=== PATIENT | male | born 1960 | race Caucasian/White ===

== ENCOUNTER → 2017-01-21 | Outpatient (CLI) | payer OTHER ==
[~2017-01-21] MED LIST: ASPIRIN EC81 M1 PO; ASPIRIN81 MG PO; DOCUSATE SODIU100 MG PO; FLAGYL PO; LEVAQUIN PO; LEVITRA PO; LIBRAX CAPSULE1 CA1 PO; METOPROLOL ER-1 EACH PO; METOPROLOL SUCC25 MG PO; MULTI VITAMIN1 EACH PO; MULTI-DAY VITAM1 TAB PO; MULTIVITAMINS1 EAC3 PO; PROBIOTIC1 EAC1 PO; VANCOCIN HCL250 MG PO; ZETIA PO; ZYRTEC PO; ZYRTEC10 M1 PO; [UNRECOGNIZED DRUG - OTHER]
--- NOTE | ~2017-01-21 | CT4 ---
[facility] A Service of [facility] & [facility] RADIOLOGY TEXT RESULTS PATIENT: OG ROLDAN LOCATION: [facility] : 58 UNIT #: [id number] AGE: [address]: Ozzy Jasso MD SEX: M ORDER DR: [id number] [facility]. [place], [place] [address] [id number] O MR#: [id number] Acc #: [id number] NAME: OG ROLDAN : 1960 SEX: M STUDY DATE/TIME: 01/21/2017 16:33 [facility] RO[facility]: STUDY DESCRIPTION: CT Abd and Pelv Wo Cont Attending Physician: Ozzy Jasso M.D. Referring Physician: Ozzy Jasso M.D. Ordering Physician: Ozzy Jasso M.D. Primary Care Physician: Ozzy Jasso M.D. MEDICAL IMAGING REPORT This report is preliminary unless electronic signature is present EXAM CT of the abdomen and pelvis without contrast media HISTORY Left lower quadrant pain for 2 days. TECHNIQUE Transaxial imaging of the abdomen and pelvis was performed without contrast media. This CT examination was performed with one or more of the following radiation dose reduction techniques: automatic exposure control, adjustment of mA and/or kV according to patient size, and iterative reconstruction. FINDINGS Scans through the lung bases show some linear scarring and a calcified granuloma at the right base. Liver, spleen, gallbladder, pancreas, and adrenal glands are normal. Both the right and left kidney have a normal appearance. No dilated or thickened loops of bowel are identified. Appendix is normal. There is extensive diverticulosis present. There are pericolonic inflammatory changes in the sigmoid colon associated with a slightly dilated diverticulum consistent with acute diverticulitis. There is no evidence of an associated diverticular abscess. Gas pattern is normal. There are advanced degenerative changes throughout the lumbar spine. CONCLUSION 1. Extensive sigmoid diverticulosis with acute diverticulitis in the sigmoid region. There is pericolonic edema. There is no evidence of an adjacent abscess. 2. Multilevel degenerative disc disease throughout the lumbar spine. [facility] A Service of [facility] & [facility] RADIOLOGY TEXT RESULTS PATIENT: OG ROLDAN LOCATION: [facility] : 58 UNIT #: [id number] AGE: [address]: Ozzy Jasso MD SEX: M ORDER DR: Dictated by... Pranav Espinal M.D. THIS IS AN ELECTRONICALLY VERIFIED REPORT Pranav Espinal M.D. at 01/25/2017 5:10 PM DOMO/joo TD: 01/22/2017 07:42 JOB #: [id number] MEDICAL IMAGING REPORT COPY
== END | disposition home or self-care (01) ==
LOC: CCAT 16:05
DX: R10.32 Left lower quadrant pain (principal); K57.32 Diverticulitis of large intestine without perforation or abscess without bleeding; M51.36 Other intervertebral disc degeneration, lumbar region
CPT/HCPCS: 74176

== ENCOUNTER → 2017-03-08 | Day surgery (SDC) | payer OTHER ==
--- NOTE | ~2017-03-08 | OR ---
Unit #: [id number] #: [id number] Patient: OG ROLDAN [id number] [address] [address] [id number] O MR#: [id number] NAME: OG ROLDAN. ROOM: Date of Procedure: 03/08/2017 Admission Date: 03/08/2017 Surgeon: Jr Boykin M.D. : 1960 Attending Physician: Jr Boykin M.D. Referring Physician: Jr Boykin M.D. Primary Care Physician: Ozzy Jasso M.D. OPERATIVE REPORT PREOPERATIVE DIAGNOSIS Abdominal pain. POSTOPERATIVE DIAGNOSIS Abdominal pain. PROCEDURES PERFORMED 1. Colonoscopy to terminal ileum. 2. Biopsy of ulcerated area of hepatic flexure. 3. Polypectomy with electrocautery snare at 10 cm. ANESTHESIA Monitored anesthesia care. FINDINGS The patient was found to have sigmoid diverticular disease as well as an 8 mm polyp in the rectum at 10 cm, completely excised with electrocautery snare with good hemostasis. There was an ulcerated area possibly neoplasm near the hepatic flexure. Mild internal hemorrhoids. SPECIMENS Sent to Pathology. COMPLICATIONS None apparent. CONDITION The patient tolerated the procedure well. INDICATIONS FOR PROCEDURE The patient is a 57-year-old white male, who has a lower abdominal pain and discomfort and history of diverticulitis in the past. He presents at this time for evaluation by colonoscopy. DESCRIPTION OF PROCEDURE After obtaining informed consent, the patient was brought to the endoscopy suite and after adequate monitored anesthesia care, had the colonoscope placed through the anus and slowly advanced to the level of the cecum without difficulty with the lumen always in view. We were able to pass through the cecum into the terminal ileum. The terminal ileum was normal as was the ileocecal valve and cecum. The ascending colon was normal. In the area of the hepatic flexure, there was an ulcerated area. Multiple Unit #: [id number] #: [id number] Patient: OG ROLDAN biopsies were obtained with good hemostasis. It was a 2 to 3 cm area. The remaining portion of the transverse colon and splenic flexure were normal. In the descending colon and sigmoid colon, there were scattered diverticular disease. There was no acute inflammation. The rectosigmoid and rectum were all within normal limits. At 10 cm from the anal verge, there was a small 8 mm polyp. It was excised completely with electrocautery snare, retrieved with a mucus trap, and sent to Pathology. There was good hemostasis. On retroflexing in the rectum to the anorectal junction, there were some mild internal hemorrhoids. On pulling back through the anal canal, there was no significant abnormality seen. On digital examination, there was good sphincter tone. No masses palpable. The patient went from the endoscopy suite to recovery area in stable condition. RECOMMENDATIONS High-fiber diet, lots of liquids, tucks or wipes p.r.n. Diverticular sheet given. Call Wednesday for pathology. Dictated by... Nadya Tompkins/veronica TD: 03/08/2017 23:49 JOB #: [id number] [facility] OPERATIVE REPORT Page 1 of 1 X Jr Boykin MD X PROCEDURE OPERATIVE NOTE
== END | disposition home or self-care (01) ==
LOC: COPS 10:55
DX: D12.8 Benign neoplasm of rectum (principal); K63.0 Abscess of intestine; K63.3 Ulcer of intestine; K57.30 Diverticulosis of large intestine without perforation or abscess without bleeding; K64.8 Other hemorrhoids; F17.210 Nicotine dependence, cigarettes, uncomplicated; Z79.82 Long term (current) use of aspirin; Z79.899 Other long term (current) drug therapy; Z98.890 Other specified postprocedural states
CPT/HCPCS: 88305; J2250

== ENCOUNTER 2017-03-29 10:38 | Inpatient (IN) | payer OTHER ==
--- NOTE | ~2017-03-29 | HP ---
Unit #: [id number] #: [id number] Patient: OG ROLDAN [id number] [address] [place], [place] [address] [id number] E MR#: [id number] NAME: OG ROLDAN ROOM: Age: 57 Sex: M Admission Date: 03/29/2017 : 1960 Attending Physician: Khanh Jaime D.O. Primary Care Physician: Ozzy Jasso M.D. HISTORY AND PHYSICAL HISTORY OF PRESENT ILLNESS A 57-year-old white male, history of hypertension, hyperlipidemia intolerant of treatment, tobacco use, irritable bowel syndrome, left bundle branch block, ED, had the onset of worsening diarrhea in December of this year. Stool studies were sent. He had no white count or fever at that time. He came back to the office soon thereafter with ongoing symptoms, was given a round of Flagyl for nonspecific colitis. CT scan was consistent with sigmoid diverticulitis. He was given a prescription for Cipro and Flagyl which did not really help. He was referred to [facility] and saw Dr. Boykin who did a colonoscopy on 03/08/17 with a simple polypectomy. There was an ulcer at the hepatic flexure which was biopsies and consistent with a crypt abscess. He is now back in the emergency room with recurrent sigmoid diverticulitis without perforation or abscess formation. He does have an elevated white count and is being admitted for bowel rest and IV antibiotics. ALLERGIES On past medical history the patient has no known drug allergies. MEDICATIONS PRIOR TO ADMISSION 1. Multivitamin one daily. 2. Enteric-coated aspirin 81 mg daily. 3. Probiotic one p.o. daily. 4. Toprol-XL 25 mg daily. 5. Some kind of eczema cream p.r.n. 6. Levitra 20 mg p.o. daily p.r.n. 7. Librax 2.5 mg one to four daily p.r.n. for irritable bowel syndrome. PAST SURGICAL HISTORY His only surgical history is that of plantar warts and a basal cell CA of the nose. PAST MEDICAL HISTORY 1. Hyperlipidemia, intolerant of treatment. 2. Hypertension. 3. Sinus tachycardia. 4. Irritable bowel syndrome. 5. Left bundle branch block. 6. ED. 7. Irritable bowel syndrome. SOCIAL HISTORY , employed city worker, smokes two packs of cigarettes daily, Unit #: [id number] #: [id number] Patient: OG ROLDAN alcohol not on a daily basis but frequently, no street drug use. FAMILY HISTORY Noncontributory. PHYSICAL EXAMINATION GENERAL APPEARANCE: He is awake, alert and oriented x3, in no acute distress. VITAL SIGNS: ER vitals temperature 98.0, pulse 94, respirations 16, blood pressure 109/68, room air O2 sat 95%. HEENT: Unremarkable. Neck was supple, without JVD, bruits, adenopathy or thyromegaly. CHEST: Clear to auscultation. HEART: Has regular rate and rhythm, without any murmurs, gallops or rubs. ABDOMEN: Abdomen was large, soft, nondistended and tender in the left lower quadrant with voluntary guarding and rebound tenderness. No hepatosplenomegaly. No involuntary guarding. EXTREMITIES: No cyanosis, clubbing or edema. GENITOURINARY: Deferred. ANO-RECTAL: Deferred. NEUROLOGIC: Exam is grossly intact. DIAGNOSTIC STUDIES LABORATORY VALUES: CBC shows a white count of 15.2 with a left shift but is otherwise normal. CMP is within normal limits except for a random blood sugar of 118. Lipase was 18, well within normal range. Urinalysis shows trace leukocytes, 1+ protein, [address] IMAGING: CT scan no official report but per the ER physician shows sigmoid diverticulitis without perforation or abscess formation. IMPRESSION 1. Chronic sigmoid diverticulitis. 2. Hypertension. 3. Sinus tachycardia. 4. Left bundle branch block. 5. Erectile dysfunction. 6. Hyperlipidemia. 7. Irritable bowel syndrome. 8. Tobacco use. PLAN Bowel rest, IV antibiotics, IV fluids, DVT prophylaxis. Toprol with sips of clears, otherwise hold home meds. Again he may well require a surgery because of ongoing symptoms and failure to respond to multiple rounds of antibiotics outpatient. Will discuss with the surgeons as needed and follow up. Dictated by Ozzy Jasso M.D. UZIEL/conchis TD: 03/29/2017 17:39 Unit #: [id number] #: [id number] Patient: OG ROLDAN JOB #: [id number] HISTORY AND PHYSICAL Page 1 of 1 X Ozzy Jasso MD HISTORY AND PHYSICAL
--- NOTE | ~2017-03-29 | A ---
[facility] Nutrition Therapy DATE: 03/30/17 Patient: OG Miller JAMAR Physician: WON Address: [address] [place] [address] STREET Room/Bed: [address] [place] [address], Zip: [place] [address] Admit Date: 03/29/17 Date of : 58 Height: 6 1 Weight: 250 113.39 NUTRITIONAL ASSESSMENT: REASON: 2 NUTRITION RISK PT RE: 10# WEIGHT LOSS NOTED PT IS 57 Y.O. MALE ADMITTED FOR ABD PAIN PMH: CARDIAC DYSFUNCTION, HTN, HLD, IBS, CHRONIC SIGMOID DIVERTICULITIS Anthropometrics: 6'1", WT: 250# (114 KG), BMI: 33.0 Labs: GLU: 114, BUN: 8, LIPASE: 18 Meds: COLACE, LEVAQUIN, ZOFRAN, KCL, NACL I/O & Bowel function: 2100/602, 2 BMs NOTED Skin Integrity: NO KNOWN SKIN ISSUES Estimated Nutrition Needs: INCREASED NEEDS 2' ?WEIGHT LOSS NOTED Assessment: CHART REVIEWED AND EVENTS NOTED. PT SEEN FOR 2 NUTRITION RISK PT RE: 10# WEIGHT LOSS. PT REPORTED DECREASED PO INTAKE 2' DECREASED APPETITE PAST FEW DAYS D/T ABD PAIN NOTED. PT REPORTS USUAL GOOD PO INTAKE AND APPETITE. PT ADDS LOSING ~9-10# BUT UNABLE TO IDENTIFY TIME FRAME OF WEIGHT LOSS. THIS RD ENCOURAGED SLOW GRADUAL PO INTAKE + SUPPLEMENT, PT AGREED TO ENSURE SHAKES BID W/MEALS, RD WILL ORDER. PT REPORTED NO DIET QUESTIONS AT THIS TIME. RD TO REMAIN AVAILABLE. Dx: DECREASED NUTRIENT INTAKE R/T DECREASED APPETITE, CLINICAL DIAGNOSIS AEB PT REPORT ABOVE. Intervention: 1. FULL LIQUID DIET 2. ENSURE SHAKES BID Monitoring, Evaluation and Goals: 1. ORAL INTAKE; CONSUME >50% OF MEALS AND SUPPLEMENTS W/NO C/O N/V/D 2. WEIGHTS; PROMOTE WEIGHT LOSS TOWARDS HEALTHY BMI 3. LABS; WNL 4. GI; PROMOTE REGULAR GI FUNCTION MONITOR: -PO INTAKE/APPETITE -SUPPLEMENT INTAKE -DIET ADVANCEMENT [facility] Nutrition Therapy DATE: 03/30/17 Patient: OG Miller JAMAR Physician: WON Address: [address] [place] [address] STREET Room/Bed: [address] [place] [address], Zip: [place] [address] Admit Date: 03/29/17 Date of : 58 Height: 6 1 Weight: 250 113.39 -WEIGHTS Recommendations: 1. PLEASE ORDER VANILLA ENSURE SHAKES BID W/MEALS 2. ONCE FEASIBLE, ADVANCE DIET TOLERATED HH+ LOW FIBER DIET 3. APPRECIATE FAMILY AND STAFF TO ENCOURAGE PO AND SUPPLEMENT INTAKE RD WILL F/U PER PROTOCOL PT IS MILD/MODERATELY COMPROMISED Respectfully, NICOLE FRAZIER MS, RD, LD [facility] cc: client file
--- NOTE | ~2017-03-29 | CT2 ---
[facility] A Service of [facility] RADIOLOGY TEXT RESULTS PATIENT: OG ROLDAN LOCATION: A : 58 UNIT #: [id number] AGE: [address]: Ozzy Jasso MD SEX: M ORDER DR: [id number] [address] [address] [id number] I MR#: [id number] Acc #: [id number] NAME: OG ROLDAN : 1960 SEX: M STUDY DATE/TIME: 04/01/2017 10:40 UNIT: [facility] ROOM: [facility] STUDY DESCRIPTION: CT Abd and Pelv W Cont Attending Physician: Ozzy Jasso M.D. Ordering Physician: Mark Isabel III, M.D. Primary Care Physician: Ozzy Jasso M.D. MEDICAL IMAGING REPORT This report is preliminary unless electronic signature is present EXAM CT abdomen and pelvis with contrast INDICATIONS Followup diverticulitis. Left lower quadrant left lower abdominal pain off and on. TECHNIQUE CT of the abdomen and pelvis was performed following administration of IV contrast and oral contrast. Coronal and sagittal reformatted images were obtained. Comparison is made with 03/29/2017. FINDINGS This CT exam was performed with one or more of the following radiation dose reduction techniques: automatic exposure control, adjustment of mA and/or kV according to patient size, and iterative reconstruction. FINDINGS There is linear scarring or atelectasis in the lung bases. The liver is unremarkable. The gallbladder and spleen are unremarkable. The kidneys and adrenal glands and pancreas are unremarkable. Pelvis: Redemonstrated is a acute diverticulitis involving the sigmoid colon and distal descending colon. Overall it is not significantly changed. There is no evidence for abscess or perforation. There is a small fat-containing left inguinal hernia. The bone windows are unremarkable. IMPRESSION Stable diverticulitis. No evidence for abscess or perforation. [facility] A Service [facility] RADIOLOGY TEXT RESULTS PATIENT: OG ROLDAN LOCATION: A : 58 UNIT #: [id number] AGE: [address]: Ozzy Jasso MD SEX: M ORDER DR: Dictated by... Jayden Goss M.D. THIS IS AN ELECTRONICALLY VERIFIED REPORT Jayden Goss M.D. at 04/02/2017 9:03 AM GLENN/maru TD: 04/01/2017 12:41 JOB #: [id number] MEDICAL IMAGING REPORT Page 1 of 1 COPY
--- NOTE | ~2017-03-29 | DS ---
Unit #: [id number] #: [id number] Patient: OG ROLDAN [id number] [address] [place], [place] [address] [id number] I MR#: [id number] NAME: OG ROLDAN. ROOM: 216 Age: 57 Sex: M Admission Date: 03/29/2017 : 1960 Discharge Date: Attending Physician: Ozzy Jasso M.D. Primary Care Physician: Ozzy Jasso M.D. DISCHARGE SUMMARY PRINCIPAL DISCHARGE DIAGNOSES 1. Diverticulitis, acute on chronic. 2. Acute Clostridium diff colitis. 3. Hypertension. 4. Left bundle branch block. 5. History of irritable bowel syndrome. 6. Tobacco use. 7. History of sinus tachycardia. 8. Erectile dysfunction. 9. Hyperlipidemia, intolerant of treatment. PROCEDURES None. CONSULTANTS [facility]. REASON FOR HOSPITALIZATION The patient is a 57-year-old white male with history of hyperlipidemia, hypertension, sinus tachycardia, irritable bowel syndrome, ED, left bundle branch block. Had the onset of worsening diarrhea in 12/2016. He was given a round of Flagyl without any change. Stool studies at that time for C. diff, O and P, enteric pathogens was negative. CT scan was consistent with diverticulitis in the sigmoid colon, treated with Cipro and Flagyl without any relief. He was referred to [facility] and underwent colonoscopy on 03/08/2017 with polypectomy and biopsy of an ulcer at the hepatic flexure consistent with a crypt abscess. He then showed up in the emergency room with worsening pain. Repeat CT scan showed sigmoid diverticulitis without any perforation or abscess and the patient was admitted. HOSPITAL COURSE The patient was admitted and made NPO, started on IV antibiotics, placed on IV fluids. Lovenox for DVT prophylaxis. Stool for Shigatoxin was negative. Stool for campylobacter was negative. Stool for C. diff was positive and started on oral vancomycin for this. Slowly but surely the patient's white count improved. Repeat CT scan showed stable diverticulitis without any abscess or perforation. He was changed to oral antibiotics yesterday and has continued to improve. He remains afebrile. His white count is normal. He has tolerated a regular diet, being discharged home. He is to followup with Dr. Benoit as previously scheduled this Wednesday to see me in approximately one week. He is on a low residue diet. Unit #: [id number] #: [id number] Patient: OG ROLDAN CURRENT MEDICATIONS 1. Vancomycin 250 mg p.o. q.6 hours. 2. Zyrtec 10 mg p.o. daily p.r.n. 3. Toprol XL 25 mg p.o. daily. 4. Colace 100 mg p.o. b.i.d. 5. Flagyl 500 mg p.o. q.8 hours. 6. Levaquin 500 mg p.o. daily. 7. Patient was prescribed probiotics while here but refuses to take them either here or at home. 8. He is on multivitamins 1 daily. 9. Levitra dose unknown p.r.n. In discussion with Dr. Rogers, it is felt that the patient may require surgery if he is not aleyda to clear up his diverticulitis or it continues to recur. The patient had this discussion with myself, as well as LSA and understands the ramifications. He will followup in the office as scheduled. Dictated by... Ozzy Jasso M.D. UZIEL/jennifer TD: 04/05/2017 08:17 JOB #: [id number] DISCHARGE SUMMARY Page 1 of 1 X Ozzy Jasso MD X DISCHARGE SUMMARY
--- NOTE | ~2017-03-29 | CT2 ---
[facility] A Service of [facility] RADIOLOGY TEXT RESULTS PATIENT: OG ROLDAN LOCATION: C2A : 58 UNIT #: [id number] AGE: [address]: Ozzy Jasso MD SEX: M ORDER DR: [id number] [id number] [facility]. [place], [place] [address] [id number] I MR#: [id number] Acc #: [id number] NAME: OG ROLDAN. : 1960 SEX: M STUDY DATE/TIME: 03/29/2017 13:29 UNIT: C2A ROOM: [facility] STUDY DESCRIPTION: CT Abd and Pelv W Cont Attending Physician: Ozzy Jasso M.D. Ordering Physician: Khanh Jaime D.O. Primary Care Physician: Ozzy Jasso M.D. MEDICAL IMAGING REPORT This report is preliminary unless electronic signature is present EXAM CT abdomen and pelvis with contrast DATE 03/29/2017 HISTORY Lower abdominal pain since 07:30 p.m. last night. Previous history of diverticulitis. Irritable bowel syndrome. Cardiac disease. Thyroid disease. COMPARISON CT abdomen and pelvis without contrast 01/21/2017 PROCEDURE 5 mL axial images from lung bases through lesser trochanters after intravenous contrast administration. Enteric contrast was not administered. Sagittal and coronal reformatted images were obtained. This CT exam was performed with one or more of the following radiation dose reduction techniques: automatic exposure control, adjustment of mA and/or kV according to patient size, and iterative reconstruction. FINDINGS There is a long-segment abnormal thickening inflammatory change of the proximal to mid sigmoid colon where diverticular changes are present. Findings are thought to represent changes of acute sigmoid diverticulitis. Trace amount of fluid and thickening is seen along the left posterior peritoneal margin within the abdomen and pelvis, but no well-defined or drainable fluid collection or abscess is seen and no gross free intraperitoneal air is identified. No pneumatosis. The appendix is normal. Lung bases are free of consolidation. Heart size is within normal limits. [facility] A Service of [facility] RADIOLOGY TEXT RESULTS PATIENT: OG ROLDAN LOCATION: [facility] 216-01 : 58 UNIT #: [id number] AGE: [address]: Ozzy Jasso MD SEX: M ORDER DR: Liver, gallbladder, spleen, pancreas, adrenals and kidneys are within normal limits. No evidence of high-grade bowel obstruction. Pelvis findings: Degenerative disc or endplate changes of lumbar spine, greatest at L3-4. No acute osseous abnormalities identified. Severe facet arthropathy on the left at L5-S1 and on the right at L4-5. IMPRESSION 1. Acute diverticulitis of the proximal to mid sigmoid colon without evidence of gross perforation or drainable fluid collection or abscess at this time. Trace amount of fluid is seen along the peritoneal margin on the left posteriorly in the abdomen/pelvis. 2. The appendix is normal. 3. Advanced degenerative changes in the xou-dj-jjoiw lumbar spine. No acute osseous abnormalities. Dictated by... Kori Olmedo M.D. THIS IS AN ELECTRONICALLY VERIFIED REPORT Kori Olmedo M.D. at 04/01/2017 8:[address] [facility]/tali TD: 03/29/2017 15:22 JOB #: [id number] MEDICAL IMAGING REPORT Page 1 of 1 COPY
--- NOTE | ~2017-03-29 | CO ---
Unit #: [id number] #: [id number] Patient: OG ROLDAN [id number] [address] [place], [place] [address] [id number] MR#: [id number] NAME: OG ROLDAN. ROOM: 216 Age: 57 Sex: M Admission Date: 03/29/2017 : 1960 Attending Physician: Ozzy Jsaso M.D. Primary Care Physician: Ozzy Jasso M.D. Consultation Date: 03/29/2017 CONSULTATION REPORT BRIEF HISTORY The patient is a 57-year-old gentleman who presents with a two day history of left lower quadrant abdominal pain, suprapubic pain. Some nausea. No vomiting. No diarrhea. No change in bowel habits. No bright red blood per rectum. He is status post colonoscopy approximately two weeks ago and found to have severe diverticular disease and a small poly. She had no blood per rectum. No fevers or chills. PAST HISTORY Cardiac dysfunction and hypertension. PAST SURGICAL HISTORY He has had no abdominal operations. HOME MEDICATIONS Librax and Zyrtec. SOCIAL HISTORY Does not drink on a daily basis. Smokes two packs per day. FAMILY HISTORY Negative for GI malignancy. REVIEW OF SYSTEMS No cardiopulmonary complaints at this time. All ten systems reviewed and negative. PHYSICAL EXAMINATION GENERAL: He is awake, alert and appropriate. VITAL SIGNS: Currently afebrile. HEENT: Unremarkable. NECK: Supple. No JVD. Trachea midline. LUNGS: Clear to auscultation. Bilateral breath sounds symmetric. CARDIOVASCULAR: Regular rate and rhythm. ABDOMEN: Soft. It is tender in the suprapubic region and left lower quadrant. No point tenderness. No rebound. No masses. No hernias. EXTREMITIES: No clubbing, cyanosis or edema. DIAGNOSTIC STUDIES LABORATORY: Labs show a white count of 15. IMAGING STUDIES: CT scan shows inflammation of the sigmoid colon with fluid. No abscess. Unit #: [id number] #: [id number] Patient: OG ROLDAN ASSESSMENT AND PLAN Diverticulitis. PLAN Recommend bowel rest, antibiotics with fiber supplement and will reassess. Dictated by... Pranav Gregory M.D. LORIN/jennifer TD: 03/30/2017 06:18 JOB #: [id number] CONSULTATION REPORT Page 1 of 1 X Pranav Gregory MD CONSULTATION REPORT
[~2017-03-29 10:38] MED LIST changes: -ASPIRIN81 MG PO; -DOCUSATE SODIU100 MG PO; -FLAGYL PO; -LEVAQUIN PO; -METOPROLOL ER-1 EACH PO; -MULTI VITAMIN1 EACH PO; -VANCOCIN HCL250 MG PO; -ZYRTEC PO
[2017-03-29 11:59] LABS: BASOPHIL# 0.1 X10e3 (0-0.3); BASOPHIL% 0.5 % (0-2.5); DIFF IND YES; EOSINOPHIL% 0.2 % (0.0-7.0); HEMATOCRIT 42.5 % (38.0-50.0); HEMOGLOBIN 14.3 gm/dL (13.0-16.0); LYMPHOCYTE# 1.7 X10e3 (1.0-3.5); LYMPHOCYTE% 11.1 % (17.0-45.0); MEAN CELL VOLUME 98.6 FL (83-96); MEAN CORPUSCULAR HEMOGLOBIN 33.3 PG (28-34); MEAN CORPUSCULAR HGB CONC 33.8 g/dL (30-36); MEAN PLATELET VOLUME 7.2 FL (6.5-11.5); MONOCYTE# 1.2 X10e3 (0-1.0); MONOCYTE% 7.7 % (3.0-12.0); NEUTROPHIL# 12.2 X10e3 (1.5-7.1); NEUTROPHIL% 80.5 % (40-75); PLATELET COUNT 282 X10e3 (140-420); RED BLOOD COUNT 4.31 X10e (3.90-5.60); RED CELL DISTRIBUTION WIDTH 13.1 % (11.0-15.5); WHITE BLOOD COUNT 15.2 X10e3 (4.0-10.5)
[2017-03-29 12:13] LABS: PLATELET ESTIMATE NORMAL (NORMAL)
[2017-03-29 12:14] LABS: RBC NORMAL YES
[2017-03-29 12:36] LABS: ALBUMIN SERUM 3.5 g/dL (3.5-5.0); BILIRUBIN, DIRECT 0.1 mg/dL (0.0-0.2); BILIRUBIN,INDIRECT 0.6 mg/dL (0.0-0.9); BILIRUBIN,TOTAL 0.7 mg/dL (0.2-2.0); BUN/CREATININE RATIO 12.22; CALCIUM SERUM 9.1 mg/dL (8.4-10.2); CREATININE SERUM 0.9 mg/dL (0.6-1.4); GLOM FILT RATE Estimated 93.8 mL/min (>60); POTASSIUM 3.5 mmol/L (3.5-5.1); PROTEIN TOTAL SERUM 6.8 g/dL (6.0-8.3)
[2017-03-29 13:38] LABS: URINE SOURCE CLEAN CATCH
[2017-03-29 14:13] LABS: URINE APPEARANCE TURBID; URINE BLOOD NEG (NEG); URINE COLOR DK YELLOW; URINE GLUCOSE NEG (NEG); URINE KETONE 1+ (NEG); URINE LEUKOCYTE ESTERASE TRACE (NEG); URINE NITRATE NEG (NEG); URINE PROTEIN 1+ (NEG); URINE SPECIFIC GRAVITY 1.037 (1.003-1.035)
[2017-03-29 14:18] LABS: URINE BACTERIA AUWI NEG (NEGATIVE); URINE SQUAMOUS EPITHELIAL CELL NONE SEEN /[HPF]; UWBCS1 AUWI 0-2 (0-5)
[2017-03-29 14:34] LABS: CULTURE INDICATED? NO
[2017-03-29 14:40] LABS: URINE AMORPHOUS SEDIMENT AMORP URATES
[2017-03-29] MEDS ORDERED: LIBRAX CAPSULE1 CA1 PO (15:08)
[2017-03-29] MEDS ORDERED: METOPROLOL ER-1 EACH PO (15:22)
[2017-03-29] MEDS ORDERED: ASPIRIN81 MG PO (15:24)
[2017-03-29] MEDS ORDERED: ZYRTEC PO (15:29)
[2017-03-29] MEDS ORDERED: LEVITRA PO (15:33)
[2017-03-29] MEDS ORDERED: MULTI VITAMIN1 EACH PO (15:33)
[2017-03-30 05:17] LABS: HEMATOCRIT 39.6 % (38.0-50.0); HEMOGLOBIN 13.1 gm/dL (13.0-16.0); MEAN CELL VOLUME 99.6 FL (83-96); MEAN CORPUSCULAR HEMOGLOBIN 33.1 PG (28-34); MEAN CORPUSCULAR HGB CONC 33.2 g/dL (30-36); MEAN PLATELET VOLUME 7.5 FL (6.5-11.5); RED BLOOD COUNT 3.97 X10e (3.90-5.60); RED CELL DISTRIBUTION WIDTH 13.2 % (11.0-15.5); WHITE BLOOD COUNT 12.6 X10e3 (4.0-10.5)
[2017-03-30 06:45] LABS: BUN/CREATININE RATIO 11.42; CALCIUM SERUM 8.4 mg/dL (8.4-10.2); CREATININE SERUM 0.7 mg/dL (0.6-1.4); GLOM FILT RATE Estimated 104.1 mL/min (>60); MAGNESIUM 1.7 mg/dL (1.6-3.0); POTASSIUM 3.6 mmol/L (3.5-5.1)
[2017-03-31 06:58] LABS: HEMATOCRIT 41.2 % (38.0-50.0); HEMOGLOBIN 13.6 gm/dL (13.0-16.0); MEAN CELL VOLUME 99.8 FL (83-96); MEAN PLATELET VOLUME 7.5 FL (6.5-11.5); RED BLOOD COUNT 4.13 X10e (3.90-5.60); RED CELL DISTRIBUTION WIDTH 12.9 % (11.0-15.5); WHITE BLOOD COUNT 11.6 X10e3 (4.0-10.5)
[2017-04-01 06:21] LABS: HEMATOCRIT 40.9 % (38.0-50.0); HEMOGLOBIN 13.6 gm/dL (13.0-16.0); MEAN CELL VOLUME 99.5 FL (83-96); MEAN CORPUSCULAR HGB CONC 33.2 g/dL (30-36); MEAN PLATELET VOLUME 7.5 FL (6.5-11.5); RED BLOOD COUNT 4.11 X10e (3.90-5.60); RED CELL DISTRIBUTION WIDTH 12.9 % (11.0-15.5); WHITE BLOOD COUNT 14.5 X10e3 (4.0-10.5)
[2017-04-01 06:42] LABS: CALCIUM SERUM 8.7 mg/dL (8.4-10.2); CARBON DIOXIDE 26 mmol/L (22-31); CHLORIDE 101 mmol/L (100-111); CREATININE SERUM 0.7 mg/dL (0.6-1.4); GLOM FILT RATE Estimated 104.1 mL/min (>60); GLUCOSE FASTING 128 mg/dL (70-110); MAGNESIUM 1.6 mg/dL (1.6-3.0); POTASSIUM 3.7 mmol/L (3.5-5.1); SODIUM 136 mmol/L (135-145)
[2017-04-01 06:45] LABS: BLOOD UREA NITROGEN <5 mg/dL (9-23); BUN/CREATININE RATIO 7.14
[2017-04-02 08:45] LABS: HEMATOCRIT 41.4 % (38.0-50.0); HEMOGLOBIN 13.7 gm/dL (13.0-16.0); MEAN CELL VOLUME 100.4 FL (83-96); MEAN CORPUSCULAR HEMOGLOBIN 33.3 PG (28-34); MEAN CORPUSCULAR HGB CONC 33.2 g/dL (30-36); MEAN PLATELET VOLUME 7.3 FL (6.5-11.5); RED BLOOD COUNT 4.12 X10e (3.90-5.60); RED CELL DISTRIBUTION WIDTH 13.1 % (11.0-15.5); WHITE BLOOD COUNT 7.8 X10e3 (4.0-10.5)
[2017-04-03 05:21] LABS: HEMATOCRIT 41.9 % (38.0-50.0); MEAN CELL VOLUME 99.6 FL (83-96); MEAN CORPUSCULAR HEMOGLOBIN 33.3 PG (28-34); MEAN CORPUSCULAR HGB CONC 33.5 g/dL (30-36); MEAN PLATELET VOLUME 7.4 FL (6.5-11.5); RED BLOOD COUNT 4.21 X10e (3.90-5.60); RED CELL DISTRIBUTION WIDTH 12.8 % (11.0-15.5); WHITE BLOOD COUNT 7.9 X10e3 (4.0-10.5)
[2017-04-05 06:59] LABS: HEMATOCRIT 43.1 % (38.0-50.0); HEMOGLOBIN 14.7 gm/dL (13.0-16.0); MEAN CELL VOLUME 99.5 FL (83-96); MEAN CORPUSCULAR HEMOGLOBIN 33.8 PG (28-34); MEAN PLATELET VOLUME 7.3 FL (6.5-11.5); RED BLOOD COUNT 4.33 X10e (3.90-5.60); WHITE BLOOD COUNT 8.7 X10e3 (4.0-10.5)
[2017-04-05] MEDS ORDERED: DOCUSATE SODIU100 MG PO (08:03)
[2017-04-05] MEDS ORDERED: LEVAQUIN PO (08:04)
[2017-04-05] MEDS ORDERED: VANCOCIN HCL250 MG PO (08:09)
[2017-04-05] MEDS ORDERED: FLAGYL PO (08:09)
== END 2017-04-05 10:12 | disposition home or self-care (01) | DRG 372 ==
LOC: CED 10:38 → C2A 14:53 → CEDOF 14:53 → C2A 18:26
PROVIDERS: Emergency Medicine; Internal Medicine; Surgery
DX: A04.7 Enterocolitis due to Clostridium difficile (principal); K57.32 Diverticulitis of large intestine without perforation or abscess without bleeding; I10 Essential (primary) hypertension; I44.7 Left bundle-branch block, unspecified; K58.9 Irritable bowel syndrome, unspecified; F17.210 Nicotine dependence, cigarettes, uncomplicated; N52.9 Male erectile dysfunction, unspecified; E78.5 Hyperlipidemia, unspecified
CPT/HCPCS: 36415; 74177; 80048; 80076; 81003; 83690; 83735; 85025; 85027; 87045; 87177; 87209; 87427; 87493; 87899; 99285; J1650; J1956; J2270; J2405; J2543; Q9967